=== PATIENT | male | born 2000 | race Caucasian/White ===

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

== ENCOUNTER 2023-05-08 22:53 | Emergency (ER) | payer BC ==
[~2023-05-08] VITALS: Ht 190.5 cm; Wt 109.1 kg
[2023-05-08 23:03] VITALS: TEMP 100.6
[2023-05-08 23:50] LABS: HEMOGLOBIN 15.4 g/dl (12.5-16.1); MEAN CELL VOLUME 85 fl (80.0-95.0); MEAN CORPUSCULAR HEMOGLOBIN 30 pg (26-32); MEAN CORPUSCULAR HGB CONC 36 g/dl (33.0-37.0); MEAN PLATELET VOLUME 8.9 fl (7.4-10.4); PLATELET COUNT 310 K/mm3 (130-400); RED BLOOD COUNT 5.09 M/mm3 (4.20-5.60); REDCELL DISTRIBUTION WIDTH-CV 12.1 % (11.5-14.5)
[2023-05-09 00:10] LABS: ALBUMIN 3.6 gm/dL (3.5-5.0); BILIRUBIN,TOTAL 1.1 mg/dL (0.2-1.2); C-REACTIVE PROTEIN 16.82 mg/dL (0.00-0.50); CALCIUM 9.8 mg/dL (8.4-10.2); CREATININE, serum 0.87 mg/dL (0.72-1.25); POTASSIUM 3.9 mmol/L (3.5-4.5); TOTAL PROTEIN 8.1 gm/dL (6.2-8.1)
[2023-05-09 00:19] LABS: COLLECTION METHOD CLEAN CATCH
[2023-05-09 00:22] LABS: BAND 3 % (0-10); LYMPHOCYTE 33 % (20.0-51.0); NEUTROPHILS 54 % (42.0-75.2); PLATELET ESTIMATE NORMAL (NORMAL)
[2023-05-09 00:39] LABS: URINE APPEARANCE Clear (CLEAR/HAZY); URINE COLOR Amber (YELLOW); URINE GLUCOSE Negative (NEGATIVE); URINE KETONE 2+ (NEGATIVE)
[2023-05-09 00:40] LABS: MUCOUS Present (NOT PRESENT); SQUAMOUS EPITHELIAL 0-2 /hpf (0-10); URINE BACTERIA Occasional /hpf (NONE SEEN); URINE BLOOD Negative (NEGATIVE); URINE NITRATE Negative (NEGATIVE); URINE PROTEIN(semi-quant) 1+ (NEGATIVE); URINE RBC 0-2 /hpf (0-2)
[2023-05-09 01:11] LABS: MONOSCREEN POSITIVE
[2023-05-09] MEDS ORDERED: ZOFRAN ODT4 MG PO (01:28)
[2023-05-09 02:00] VITALS: BP 123/87; PULSE 84
== END 2023-05-09 02:00 | disposition home or self-care (01) ==
LOC: COL.ER 22:53
PROVIDERS: Nurse Practitioner Primary Care
DX: B27.90 Infectious mononucleosis, unspecified without complication (principal)
CPT/HCPCS: J1885; J2405; J7030; Q9967